=== PATIENT | female | born 1930 | race Caucasian/White ===

== ENCOUNTER → 2016-11-24 | Outpatient (CLI) | payer OTHER ==
[~2016-11-24] MED LIST: AMBIEN 5 MG TABL5 M1 PO; AMLODIPINE BESYL5 MG PO; B COMPLEX-VITA1 EACH PO; BISACODYL SUPP10 MG RECTAL; CALCIUM,MG,ZINC PO; CARAFATE 1 GM TA1 G1 PO; COLACE100 MG PO; COUMADIN 2 MG TA2 M1 PO; COUMADIN 5 MG TA5 M1 PO; COZAAR 50 MG TA50 M2 PO; CRESTOR5 MG PO; FERRO-TIME325 MG PO; FISH OIL 1,0001 EAC5 PO; FISH OIL 1,001000 M2 PO; FISHOIL PO; FOLIC ACID0.4 MG PO; FOSAMAX 70 MG T70 M1 PO; GLUCOSAMINE &1 EACH PO; GLUCOSAMINE HC500 MG PO; HYDROCHLOROTHIA25 M1 PO; HYDROCHLOROTHIA25 M2 PO; LEVOXYL75 MCG PO; LOPRESSOR25 PO; MOBIC15 MG PO; NORCO 5-325 TA1 EACH PO; NORVASC 5 MG TAB5 MG PO; PANTOPRAZOLE SO40 M1 PO; PERCOCET 7.5-31 EACH PO; SIMVASTATIN20 MG PO; SYNTHROID PO; TRAMADOL 50 MG50 MG PO; ULTRACET TABLE1 EACH PO; VITAMIN D-32000 UNIT PO; VITAMIN D1000 UNI1 PO; VITAMIN E400 UNIT PO; VITAMINC500 PO
== END ==
LOC: ULTRA 15:07
DX: M79.604 Pain in right leg (principal); M79.89 Other specified soft tissue disorders

== ENCOUNTER → 2016-12-01 | Outpatient (CLI) | payer OTHER | LOC: RAD 08:59 | DX: M19.071 Primary osteoarthritis, right ankle and foot (principal) ==

== ENCOUNTER 2018-02-09 05:24 | Inpatient (IN) | payer OTHER ==
[2018-01-31 10:04] LABS: URINE BILIRUBIN NEGATIVE (Negative); URINE BLOOD NEGATIVE (Negative); URINE CLARITY CLEAR; URINE COLOR YELLOW; URINE GLUCOSE-RANDOM* NEGATIVE (Negative); URINE KETONES NEGATIVE (Negative); URINE LEUKOCYTES-REFLEX NEGATIVE (Negative); URINE NITRITE-REFLEX NEGATIVE (Negative); URINE PROTEIN (DIPSTICK) NEGATIVE (Negative); URINE SPECIFIC GRAVITY 1.025 (1.005-1.035); URINE UROBILINOGEN 0.2 E.U./dl (0.2-1.0)
[2018-01-31 10:11] LABS: HEMATOCRIT 34.9 % (37.0-47.0); MCH 32.6 pg (26.0-34.0); MCHC 34.5 g/dL (28.0-37.0); MCV 94.5 fL (80.0-100.0); RBC 3.69 mil/uL (4.20-5.00); WBC 8.9 thou/uL (4.0-11.0)
[2018-01-31 10:16] LABS: ALBUMIN 3.5 g/dL (3.4-5.0); CALCIUM 8.9 mg/dL (8.5-10.1); CREATININE 0.9 mg/dL (0.6-1.0); POTASSIUM 4.7 mmol/L (3.5-5.1)
[2018-01-31 10:33] LABS: PROTIME 10.7 Seconds (9.3-11.4)
[2018-02-09] VITALS (7 sets, daily range): BP systolic 88–128; BP diastolic 48–75
[~2018-02-09] VITALS: Ht 162.6 cm; Wt 61.2 kg
--- NOTE | ~2018-02-09 | EKG ---
[address] [place] [address] ELECTROCARDIOGRAM REPORT Name: ALIX CORTES Room #: [facility]#: [id number] Admission: Attend Phys: Jose Jay MD Discharge: Date of : 28 Report #: [id number] THIS REPORT FOR: //name// [facility] Test Date: 2018-01-31 Test Time: 09:58:16 Pat Name: ALIX CORTES Department: Room: Gender: F Damper Maker: Jo GARCIA : 1930 Requested By: Jose Jay Order Number: [id number] MD: Fuentes Cai Measurements Intervals [place] Rate: 54 P: 22 VT: 188 QRS: -24 QRSD: 145 T: 20 QT: 496 QTc: 471 Interpretive Statements Sinus rhythm Right bundle branch block Compared to ECG 10/16/2013 09:37:18 Sinus bradycardia no longer present Sinus arrhythmia no longer present Electronically Signed On 01-31-2018 13:26:37 CDT by Fuentes Cai [email or web address] <ELECTRONICALLY SIGNED> By: Fuentes Cai MD 01/31/18 1326 Fuentes Cai MD /ANNA
--- NOTE | ~2018-02-09 | O ---
[facility] [place] [address] OPERATIVE REPORT Name: ALIX CORTES Room #: 150-6 ADM IN M.R.#: [id number] Admission: 02/09/18 Attend Phys: Jose Jay MD Discharge: Date of : 28 Report #: [id number] THIS REPORT FOR: //name// CC: David Jay DATE OF SERVICE: 02/09/2018 PREOPERATIVE DIAGNOSIS: Left hip osteoarthritis. POSTOPERATIVE DIAGNOSIS: Left hip osteoarthritis. PROCEDURE: Left hybrid total hip arthroplasty. SURGEON: Jose Jay MD. WRESTLING COACH: Erin Zayas PA-C. ANESTHESIA: General endotracheal. IMPLANTS: [employer] size 50 R3, size 12 high offset Synergy cemented stem with a size 32+4 cobalt chrome head. ESTIMATED BLOOD LOSS: 100 mL. COMPLICATIONS: None. SPECIMENS: None. CONDITION UPON LEAVING THE OPERATING ROOM: Stable. INDICATIONS FOR PROCEDURE: The patient is an 87-year-old female with severe left hip osteoarthritis. She had failed conservative measures for this and after discussion with her, she elected for left total hip arthroplasty. DESCRIPTION OF PROCEDURE: Risks, benefits, alternatives, complications were discussed in detail with the patient including but not limited to risk of anesthesia, risk of damage to nerves, arteries, blood vessels, risk for infection, bleeding, risk for leg length discrepancy, instability and need for reoperation. Informed consent was obtained from the patient. Left hip was appropriately marked in the preoperative holding area. IV Ancef was given for preoperative antibiotics. She was brought to the operating room and placed in supine position on operating room table. General anesthesia was induced without complication. She was then placed in the right lateral decubitus position with the left hip uppermost. The left hip and lower extremity were prepped and draped in normal sterile fashion. Timeout was performed properly identifying [facility] [address] [place] [address] OPERATIVE REPORT Name: SEBASTIANALIX Room #: 150-6 [facility] IN [facility].#: [id number] Admission: 02/09/18 Attend Phys: Jose Jay MD Discharge: Date of : 28 Report #: [id number] the patient and procedure as well as the instrumentation and implants. All in the operating room were in agreement. Standard posterior approach to the hip was made with 10 blade through the skin. Dissection was taken to the fascia with Bovie cautery and a fresh #10 blade was used to make a fascial incision. This was taken proximally and distally with curved Garcia scissor. Charnley retractor was placed. Trochanteric bursa was taken down with Bovie cautery. Piriformis tendon was identified, tagged and taken down with Bovie. Short external rotators were also taken down with Bovie cautery. Capsulotomy was made and capsule ends were tagged for later repair. The hip was dislocated. There was extensive osteoarthritic change in the femoral head. Femoral neck cut was made 1 cm proximal to lesser trochanter based on preoperative templating. The femoral head was removed. Deep acetabular retractors were placed. Labrum was removed sharply. Pulvinar was removed with Bovie cautery. The acetabulum was then sequentially reamed up to a size 50, at which point, there was excellent bleeding cancellous bone. This was trialed with a size 49 acetabular shell, found to have a good fit. A final size 50 R3 acetabular cup was placed and seated. One acetabular screw was placed for backup fixation. After this, attention was turned to the femur. This was reamed and broached up to a size 12, at which point, the size 12 broach was stable. This trialed with a high offset neck and a 32+0 head. Hip was reduced, taken through range of motion, found to be stable, found to be somewhat short compared to the right side. It was felt this could be made up for with a final implant. Broach was removed and the canal was then cleaned. A size 12 high offset Synergy cemented stem was then cemented in place using standard cementation techniques. After the cement cured, this was trialed with a 32+4 head. Hip was reduced, taken through range of motion, found to be stable, found to have equal leg lengths. Hip was dislocated and a final size 32+4 cobalt chrome head was placed. Hip was reduced, taken through range of motion, found to be stable, found to have equal leg lengths. The wound was thoroughly irrigated with normal saline. Periarticular injection consisting of morphine, ropivacaine, epinephrine and Toradol was placed around the hip joint capsule. A gram of vancomycin was placed deep in the joint. The capsule and piriformis were repaired with 0 FiberWire. Fascia was closed with 0 Vicryl, skin was closed with 2-0 Vicryl, 3-0 Monocryl. Dermabond and a PALLAVI dressing was applied. The patient tolerated this procedure well and went to the recovery room under care of anesthesia postoperatively. By: [id number] Jose Jay MD /boaz
[~2018-02-09 05:24] MED LIST changes: +TOPROL XL25 MG PO
[2018-02-10 04:00] VITALS: BP 107/62
[2018-02-10 05:58] LABS: HEMATOCRIT 23.8 % (37.0-47.0); HEMOGLOBIN 8.1 gm/dL (12.0-15.0); MCH 32.5 pg (26.0-34.0); MCV 95.5 fL (80.0-100.0); RBC 2.49 mil/uL (4.20-5.00); RDW 13.1 % (10.5-14.5); WBC 10.7 thou/uL (4.0-11.0)
[2018-02-10 07:28] VITALS: BP 93/47
[2018-02-10 16:32] VITALS: BP 98/53
[2018-02-10 19:29] VITALS: BP 110/54
[2018-02-11 07:16] LABS: MCH 32.8 pg (26.0-34.0); MCHC 34.6 g/dL (28.0-37.0); MCV 94.9 fL (80.0-100.0); RBC 2.43 mil/uL (4.20-5.00); RDW 13.4 % (10.5-14.5); WBC 6.8 thou/uL (4.0-11.0)
[2018-02-11 07:53] VITALS: BP 127/63
[2018-02-11] MEDS ORDERED: NEURONTIN 300300 M1 PO (12:08)
[2018-02-11] MEDS ORDERED: HYDROCODON-ACE1 EAC7 PO (12:08)
[2018-02-11] MEDS ORDERED: TRI-BUFFERED A325 M1 PO (12:08)
== END 2018-02-11 15:17 | DRG 470 ==
LOC: 4E 05:24 → TBA 05:24 → PRE 05:36 → 4E 19:09 → SICU 02-10 18:57
PROVIDERS: Orthopaedic Surgery
PROC: 0SRB019 Replacement of Left Hip Joint with Metal Synthetic Substitute, Cemented, Open Approach (ICD-10-PCS; principal; 2018-02-09)
DX: M16.12 Unilateral primary osteoarthritis, left hip (principal); E03.9 Hypothyroidism, unspecified; I10 Essential (primary) hypertension; Z79.899 Other long term (current) drug therapy
CPT/HCPCS: 10783; 15002; 50010; 50101; 50149; 50382; 50414; 51057; 51130; 51225; 51226; 51771; 53078; 53367; 54118; 56460; 56524; 56527; 56528; 56530; 57095; 57103; 62110; 62900; 70005

== ENCOUNTER → 2018-06-09 | Outpatient (CLI) | payer OTHER ==
[~2018-06-09] MED LIST changes: +HYDROCODON-ACE1 EAC7 PO; +NEURONTIN 300300 M1 PO; +TRI-BUFFERED A325 M1 PO
== END ==
LOC: RAD 09:03
DX: R05 Cough (principal); I70.0 Atherosclerosis of aorta; Z87.01 Personal history of pneumonia (recurrent)

== ENCOUNTER → 2018-10-18 | Outpatient (CLI) | payer OTHER | LOC: ULTRA 09:38 | DX: R22.32 Localized swelling, mass and lump, left upper limb (principal) ==